=== PATIENT | female | born 1960 | race Caucasian/White ===

== ENCOUNTER 2020-09-18 11:20 | Emergency (ER) | payer BC, MEDICARE ==
[2020-09-18 11:25] VITALS: TEMP 97.8
[2020-09-18] MEDS ORDERED: SODIUM CHLORIDE 0.9% 1,000 ML IV STA (12:02)
[2020-09-18] MEDS ORDERED: HYDROmorphone 0.5 MG/0.5 ML SYRINGE IVP STA ×2 (12:03→13:52)
[2020-09-18] MEDS ORDERED: ONDANSETRON 4 MG/2 ML VIAL IVP STA (12:03)
[2020-09-18 12:33] LABS: Appearance,Urine Clear (Clear); Bacteria,Urine Rare /hpf; Bilirubin,Urine 1+ (Negative); Blood,Urine Negative (Negative); Color,Urine Dark Brown; Glucose,Urine (UA) Negative (Negative); Ketones,Urine Negative (Negative); Leukocyte Esterase,Urine Negative (Negative); Mucus,Urine Occasional /hpf; Nitrite,Urine Positive (Negative); Protein,Urine Negative (Negative); RBC,Urine 1 /hpf (0-5); Specific Gravity,Urine 1.021 (1.001-1.035); Squamous Epithelial Cell,Urine 1 /hpf (0-4); WBC,Urine 3 /hpf (0-5)
[2020-09-18 12:39] LABS: Basophils # (A) 0.1 k/uL (0-0.2); Basophils % (A) 1 %; Eosinophils # (A) 0.2 k/uL (0-0.7); Eosinophils % (A) 2 %; HCT 41.8 % (34.0-46.0); HGB 14.4 gm/dL (11.4-16.0); Lymphocytes # (A) 1.9 k/uL (1.0-4.8); Lymphocytes % (A) 28 %; MCH 29.4 pg (25.0-35.0); MCHC 34.4 g/dL (31.0-37.0); MCV 85.3 fL (80.0-100.0); Mean Platelet Volume 7.3; Monocytes # (A) 0.3 k/uL (0-1.0); Monocytes % (A) 5 %; Neutrophils # (A) 4.2 k/uL (1.3-7.7); Neutrophils % (A) 62 %; Platelet Count 246 k/uL (150-450); WBC 6.7 k/uL (3.8-10.6)
[2020-09-18 12:48] LABS: ALT 20 U/L (4-34); AST 26 U/L (14-36); African American GFR (CKD) >90 (>60 ml/min/1.73 sqM); Albumin 4.6 g/dL (3.5-5.0); Alkaline Phosphatase 112 U/L (38-126); Amylase 61 U/L (30-110); Anion Gap 12 mmol/L; Blood Urea Nitrogen 16 mg/dL (7-17); Calcium 9.7 mg/dL (8.4-10.2); Carbon Dioxide 23 mmol/L (22-30); Chloride 108 mmol/L (98-107); Glucose 90 mg/dL (74-99); Lipase 73 U/L (23-300); Non-African American GFR(CKD) >90 (>60 ml/min/1.73 sqM); Potassium 4.3 mmol/L (3.5-5.1); Sodium 143 mmol/L (137-145); Total Bilirubin 0.7 mg/dL (0.2-1.3); Total Protein 7.7 g/dL (6.3-8.2)
--- NOTE | 2020-09-18 12:55 | ED ---
General Adult HPI - General Chief complaint: Abdominal Pain Stated complaint: Abd pain, dizziness Time Seen by Provider: 09/18/20 11:42 Source: patient Mode of arrival: ambulatory Limitations: no limitations - History of Present Illness Initial comments: 60-year-old female with a past medical history of hypertension presents to the emergency room for a chief complaint of abdominal pain. Patient reports that she started to have abdominal pain in the past day or so. States that it progressively got worse. States she has feels it in her back. Patient admits to nausea but denies vomiting. Denies fevers.Patient has no other complaints at this time including shortness of breath, chest pain, headache, or visual changes. - Related Data Home Medications Medication Instructions Recorded Confirmed ALPRAZolam [Xanax] 0.25 mg PO BID PRN 11/06/13 09/18/20 Celecoxib [CeleBREX] 200 mg PO BID 09/18/20 09/18/20 Diazepam [Valium] 10 mg PO HS PRN 09/18/20 09/18/20 Gabapentin [Neurontin] 400 mg PO BID 09/18/20 09/18/20 Lidocaine 5% Oint [Xylocaine 5% 1 applic TOPICAL DAILY PRN 09/18/20 09/18/20 Oint] traMADol HCl [Ultram] 50 mg PO BID PRN 09/18/20 09/18/20 Previous Rx's Medication Instructions Recorded Sulfamethox-Tmp 800-160Mg [Bactrim 1 tab PO Q12HR #28 tab 09/18/20 DS 800-160 mg] Allergies Allergy/AdvReac Type Severity Reaction Status Date / Time Penicillins Allergy Anaphylaxis Verified 09/18/20 12:41 Review of Systems ROS Statement: Those systems with pertinent positive or pertinent negative responses have been documented in the HPI. ROS Other: All systems not noted in ROS Statement are negative. Past Medical History Past Medical History: Hypertension, Osteoarthritis (OA) Additional Past Medical History / Comment(s): back pain, History of Any Multi-Drug Resistant Organisms: None Reported Past Surgical History: Back Surgery, Breast Surgery, Section, Orthopedic Surgery, Tubal Ligation Additional Past Surgical History / Comment(s): BACK SX X2, LEFT KNEE ARTHROSCOPY, LEFT BREAST BX Past Anesthesia/Blood Transfusion Reactions: Postoperative Nausea & Vomiting (PONV) Past Psychological History: Anxiety Smoking Status: Never smoker Past Alcohol Use History: None Reported Past Drug Use History: Marijuana General Exam Limitations: no limitations General appearance: alert, in no apparent distress Head exam: Present: atraumatic, normocephalic, normal inspection Eye exam: Present: normal appearance, PERRL, EOMI. Absent: scleral icterus, conjunctival injection, periorbital swelling ENT exam: Present: normal exam, mucous membranes moist Neck exam: Present: normal inspection, full ROM. Absent: tenderness, meningismus, lymphadenopathy Respiratory exam: Present: normal lung sounds bilaterally. Absent: respiratory distress, wheezes, rales, rhonchi, stridor Cardiovascular Exam: Present: regular rate, normal rhythm, normal heart sounds. Absent: systolic murmur, diastolic murmur, rubs, gallop, clicks GI/Abdominal exam: Present: soft, normal bowel sounds. Absent: distended, tenderness (No significant abdominal tenderness noted.), guarding, rebound, rigid Course Vital Signs 09/18/20 11:22 Temperature 97.8 F Pulse Rate 85 Respiratory 20 Rate Blood Pressure 120/87 O2 Sat by Pulse 97 Oximetry EKG Findings - EKG Comments: EKG Findings:: Normal sinus rhythm, ventricular rate 68, MD interval 156, QTc 440 Medical Decision Making - Medical Decision Making Vitals are stable. CBC and CMP are unremarkable. Urinalysis however does have positive nitrites with 3 white blood cells and rare bacteria. Abdomen and pelvis shows no acute process. There is a simple cyst involving the right kidney which appears similar to 2015. Patient does have left CVA tenderness. She now states pain is in the left back and wraps around to the abdomen. Symptoms consistent with pyelonephritis. We will treat patient as such. She has an anaphylactic ALLERGY to penicillin, we will treat her with Bactrim. She will follow up with her doctor. She will return here for any worsening symptoms. - Lab Data Result diagrams: 09/18/20 12:30 09/18/20 12:30 Lab Results 09/18/20 09/18/20 09/18/20 Range/Units 11:47 12:30 12:30 WBC 6.7 (3.8-10.6) k/uL RBC 4.90 (3.80-5.40) m/uL Hgb 14.4 (11.4-16.0) gm/dL Hct 41.8 (34.0-46.0) % MCV 85.3 (80.0-100.0) fL MCH 29.4 (25.0-35.0) pg MCHC 34.4 (31.0-37.0) g/dL RDW 13.0 (11.5-15.5) % Plt Count 246 (150-450) k/uL MPV 7.3 Neutrophils % 62 % Lymphocytes % 28 % Monocytes % 5 % Eosinophils % 2 % Basophils % 1 % Neutrophils # 4.2 (1.3-7.7) k/uL Lymphocytes # 1.9 (1.0-4.8) k/uL Monocytes # 0.3 (0-1.0) k/uL Eosinophils # 0.2 (0-0.7) k/uL Basophils # 0.1 (0-0.2) k/uL Sodium 143 (137-145) mmol/L Potassium 4.3 (3.5-5.1) mmol/L Chloride 108 H (98-107) mmol/L Carbon Dioxide 23 (22-30) mmol/L Anion Gap 12 mmol/L BUN 16 (7-17) mg/dL Creatinine 0.69 (0.52-1.04) mg/dL Est GFR (CKD-EPI)AfAm >90 (>60 ml/min/1.73 sqM) Est GFR (CKD-EPI)NonAf >90 (>60 ml/min/1.73 sqM) Glucose 90 (74-99) mg/dL Calcium 9.7 (8.4-10.2) mg/dL Total Bilirubin 0.7 (0.2-1.3) mg/dL AST 26 (14-36) U/L ALT 20 (4-34) U/L Alkaline Phosphatase 112 (38-126) U/L Troponin I (0.000-0.034) ng/mL Total Protein 7.7 (6.3-8.2) g/dL Albumin 4.6 (3.5-5.0) g/dL Amylase 61 (30-110) U/L Lipase 73 (23-300) U/L Urine Color Dark Brown Urine Appearance Clear (Clear) Urine pH 6.0 (5.0-8.0) Ur Specific [place] 1.021 (1.001-1.035) Urine Protein Negative (Negative) Urine Glucose (UA) Negative (Negative) Urine Ketones Negative (Negative) Urine Blood Negative (Negative) Urine Nitrite Positive H (Negative) Urine Bilirubin 1+ H (Negative) Urine Urobilinogen 3.0 (<2.0) mg/dL Ur Leukocyte Esterase Negative (Negative) Urine RBC 1 (0-5) /hpf Urine WBC 3 (0-5) /hpf Ur Squamous Epith Cells 1 (0-4) /hpf Urine Bacteria Rare H (None) /hpf Urine Mucus Occasional H (None) /hpf 09/18/20 Range/Units 12:30 WBC (3.8-10.6) k/uL RBC (3.80-5.40) m/uL Hgb (11.4-16.0) gm/dL Hct (34.0-46.0) % MCV (80.0-100.0) fL MCH (25.0-35.0) pg MCHC (31.0-37.0) g/dL RDW (11.5-15.5) % Plt Count (150-450) k/uL MPV Neutrophils % % Lymphocytes % % Monocytes % % Eosinophils % % Basophils % % Neutrophils # (1.3-7.7) k/uL Lymphocytes # (1.0-4.8) k/uL Monocytes # (0-1.0) k/uL Eosinophils # (0-0.7) k/uL Basophils # (0-0.2) k/uL Sodium (137-145) mmol/L Potassium (3.5-5.1) mmol/L Chloride (98-107) mmol/L Carbon Dioxide (22-30) mmol/L Anion Gap mmol/L BUN (7-17) mg/dL Creatinine (0.52-1.04) mg/dL Est GFR (CKD-EPI)AfAm (>60 ml/min/1.73 sqM) Est GFR (CKD-EPI)NonAf (>60 ml/min/1.73 sqM) Glucose (74-99) mg/dL Calcium (8.4-10.2) mg/dL Total Bilirubin (0.2-1.3) mg/dL AST (14-36) U/L ALT (4-34) U/L Alkaline Phosphatase (38-126) U/L Troponin I <0.012 (0.000-0.034) ng/mL Total Protein (6.3-8.2) g/dL Albumin (3.5-5.0) g/dL Amylase (30-110) U/L Lipase (23-300) U/L Urine Color Urine Appearance (Clear) Urine pH (5.0-8.0) Ur Specific [place] (1.001-1.035) Urine Protein (Negative) Urine Glucose (UA) (Negative) Urine Ketones (Negative) Urine Blood (Negative) Urine Nitrite (Negative) Urine Bilirubin (Negative) Urine Urobilinogen (<2.0) mg/dL Ur Leukocyte Esterase (Negative) Urine RBC (0-5) /hpf Urine WBC (0-5) /hpf Ur Squamous Epith Cells (0-4) /hpf Urine Bacteria (None) /hpf Urine Mucus (None) /hpf Disposition Clinical Impression: Pyelonephritis Disposition: HOME SELF-CARE Condition: Good Instructions (If sedation given, give patient instructions): Kidney Infection (ED) Additional Instructions: Please take antibiotic as directed. Please follow-up with your doctor. Return to the emergency room for any worsening symptoms. Prescriptions: Sulfamethox-Tmp 800-160Mg [Bactrim DS 800-160 mg] 1 tab PO Q12HR #28 tab Is patient prescribed a controlled substance at d/c from ED?: No Referrals: Fanny Saenz MD [Primary Care Provider] - 1-2 days Time of Disposition: 13:45
--- NOTE | 2020-09-18 13:07 | CT ---
EXAMINATION TYPE: CT abdomen pelvis w con DATE OF EXAM: 09/18/2020 COMPARISON: None HISTORY: Pain CT DLP: 1838 mGycm Automated exposure control for dose reduction was used. CONTRAST: CT scan of the abdomen pelvis is performed , patient injected with 100 mL of Isovue 300. FINDINGS- LUNG BASES- No significant abnormality is appreciated. LIVER/GB- No gross abnormality is appreciated. PANCREAS- No gross abnormality is seen. SPLEEN- No gross abnormality is seen. ADRENALS- No gross abnormality is seen. KIDNEYS/BLADDER-hypodensity within the lower pole of the right. Kidney most likely related to simple cyst. BOWEL-bowel gas pattern nonspecific with no obstruction. Diverticulosis with no CT evidence of divert iculitis. Small duodenal diverticulum involving the third portion of the duodenum.. LYMPH NODES- No greater than 1cm abdominal or pelvic lymph nodes areappreciated. OSSEOUS STRUCTURES-hypertrophic and degenerative change of the spine. Chronic appearing deformity of the right iliac bone and transverse processes L4. OTHER- small fat-containing periumbilical hernia. IMPRESSION- 1. No acute process. Probable simple cyst involving the right kidney which appears similar to the maryanne or MRI lumbar spine of 05/21/2014.
[2020-09-18] MEDS ORDERED: SULFAMETH-TMP DS STARTER PACK 2 TAB BTL PO STA (13:46)
[2020-09-18] MEDS ORDERED: ACET/COD 300 MG/30 MG STARTER PACK 6 TAB BTL PO STA (13:52)
[2020-09-18] MEDS: SULFAMETH-TMP DS STARTER PACK 2 TAB BTL PO STA ×2 (14:27→14:30)
[2020-09-18 14:29] VITALS: BP 123/97; PULSE 75; RESP 18
== END 2020-09-18 14:38 | disposition home or self-care (01) ==
LOC: EC 11:20
DX: N12 Tubulo-interstitial nephritis, not specified as acute or chronic (principal); N28.1 Cyst of kidney, acquired; R42 Dizziness and giddiness; I10 Essential (primary) hypertension; M19.90 Unspecified osteoarthritis, unspecified site; F41.9 Anxiety disorder, unspecified; F12.90 Cannabis use, unspecified, uncomplicated; Z88.0 Allergy status to penicillin; Z79.899 Other long term (current) drug therapy; Z79.1 Long term (current) use of non-steroidal anti-inflammatories (NSAID)
CPT/HCPCS: 36415; 80053; 82150; 83690; 84484; 85025; 81001; 74177; 99284; 96374; 96375; 96376; J2405; J1170; Q9967; 93005

== ENCOUNTER 2021-12-03 12:19 | Emergency (ER) | payer BC, MEDICARE ==
[2021-12-03] MEDS ORDERED: ONDANSETRON 4 MG/2 ML VIAL IVP STA (12:51)
[2021-12-03] MEDS ORDERED: SODIUM CHLORIDE 0.9% 1,000 ML IV STA (12:51)
[2021-12-03 13:31] LABS: Basophils % (A) 1 %; Eosinophils # (A) 0.1 k/uL (0-0.7); Eosinophils % (A) 2 %; HCT 44.4 % (34.0-46.0); HGB 14.8 gm/dL (11.4-16.0); Lymphocytes # (A) 1.4 k/uL (1.0-4.8); Lymphocytes % (A) 37 %; MCH 28.5 pg (25.0-35.0); MCHC 33.2 g/dL (31.0-37.0); MCV 85.9 fL (80.0-100.0); Monocytes # (A) 0.2 k/uL (0-1.0); Monocytes % (A) 6 %; Neutrophils # (A) 2.1 k/uL (1.3-7.7); Neutrophils % (A) 54 %; Platelet Count 166 k/uL (150-450); RBC 5.17 m/uL (3.80-5.40); RDW 12.6 % (11.5-15.5); WBC 3.8 k/uL (3.8-10.6)
[2021-12-03 13:36] LABS: Partial Thromboplastin Time 24.9 sec (22.0-30.0); Prothrombin Time 10.5 sec (9.0-12.0)
[2021-12-03 13:39] VITALS: RESP 18
[2021-12-03] MEDS ORDERED: MORPHINE SULFATE 2 MG/ML SYRINGE IVP STA (13:40)
[2021-12-03 13:43] LABS: ALT 16 U/L (4-34); AST 32 U/L (14-36); African American GFR (CKD) >90 (>60 ml/min/1.73 sqM); Albumin 4.4 g/dL (3.5-5.0); Alkaline Phosphatase 80 U/L (38-126); Anion Gap 8 mmol/L; Blood Urea Nitrogen 14 mg/dL (7-17); Calcium 8.7 mg/dL (8.4-10.2); Carbon Dioxide 24 mmol/L (22-30); Chloride 107 mmol/L (98-107); Glucose 93 mg/dL (74-99); Magnesium 1.8 mg/dL (1.6-2.3); Non-African American GFR(CKD) 87 (>60 ml/min/1.73 sqM); Potassium 4.5 mmol/L (3.5-5.1); Sodium 139 mmol/L (137-145); Total Bilirubin 0.6 mg/dL (0.2-1.3); Total Protein 7.3 g/dL (6.3-8.2)
--- NOTE | 2021-12-03 14:06 | XR ---
EXAMINATION TYPE: XR chest 2V DATE OF EXAM: 12/03/2021 COMPARISON: 11/06/2013 INDICATION: Weakness TECHNIQUE: Frontal and lateral views of the chest are obtained. FINDINGS: The heart size is normal. The pulmonary vasculature is normal. The lungs are clear. IMPRESSION: 1. No acute pulmonary process.
--- NOTE | 2021-12-03 14:22 | ED ---
Nausea/Vomiting/Diarrhea HPI - General Chief complaint: Nausea/Vomiting/Diarrhea Stated complaint: COVID+ Time Seen by Provider: 12/03/21 12:30 Source: patient, family Mode of arrival: wheelchair Limitations: no limitations - History of Present Illness Initial comments: 61-year-old female presents the emergency department with myalgias, nausea, vomiting, cough for the past 2 weeks. States her tested positive for Covid 2 weeks ago. 2 days after that she began having symptoms. Originally she had improvement however starting 3 days ago she got worse again. She never tested herself for Covid. Over the past 3 days she's had diffuse myalgias, fatigue, nonproductive cough. She had a tele-visit with her primary care doctor who put her on Avelox thinking that she had pneumonia. States that the medication is making her nauseated and vomits every time she takes it. Due to the persistence of her symptoms she came into the emergency department. She denies headaches or visual changes. No chest pain. No abdominal pain. Patient has had a decreased appetite. No other alleviating, draw operator modifying factors - Related Data Home Medications Medication Instructions Recorded Confirmed ALPRAZolam [Xanax] 0.25 mg PO BID PRN 11/06/13 09/18/20 Celecoxib [CeleBREX] 200 mg PO BID 09/18/20 09/18/20 Gabapentin [Neurontin] 400 mg PO BID 09/18/20 09/18/20 Lidocaine 5% Oint [Xylocaine 5% 1 applic TOPICAL DAILY PRN 09/18/20 09/18/20 Oint] diazePAM [Valium] 10 mg PO HS PRN 09/18/20 09/18/20 traMADol HCl [Ultram] 50 mg PO BID PRN 09/18/20 09/18/20 Previous Rx's Medication Instructions Recorded Sulfamethox-Tmp 800-160Mg [Bactrim 1 tab PO Q12HR #28 tab 09/18/20 DS 800-160 mg] Albuterol Inhaler [Ventolin Hfa 2 puff INHALATION RT-QID #8 gm 12/03/21 Inhaler] Nirmatrelvir/Ritonavir [Paxlovid 1 each PO BID #1 pack 12/03/21 2X150 mg-100 mg (Eua)] Ondansetron Odt [Zofran Odt] 4 mg PO Q8HR PRN #15 tab 12/03/21 predniSONE [Deltasone] 20 mg PO BID #10 tab 12/03/21 Allergies Allergy/AdvReac Type Severity Reaction Status Date / Time Penicillins Allergy Anaphylaxis Verified 12/03/21 12:28 Review of Systems ROS Statement: Those systems with pertinent positive or pertinent negative responses have been documented in the HPI. ROS Other: All systems not noted in ROS Statement are negative. Past Medical History Past Medical History: Hypertension, Osteoarthritis (OA) Additional Past Medical History / Comment(s): back pain, lupus History of Any Multi-Drug Resistant Organisms: None Reported Past Surgical History: Back Surgery, Breast Surgery, Section, Orthopedic Surgery, Tubal Ligation Additional Past Surgical History / Comment(s): BACK SX X2, LEFT KNEE ARTHROSCOPY, LEFT BREAST BX Past Anesthesia/Blood Transfusion Reactions: Postoperative Nausea & Vomiting ( PONV) Past Psychological History: Anxiety Smoking Status: Never smoker Past Alcohol Use History: None Reported Past Drug Use History: Marijuana General Exam Limitations: no limitations General appearance: alert, in no apparent distress Head exam: Present: atraumatic, normocephalic, normal inspection Eye exam: Present: normal appearance, PERRL, EOMI. Absent: scleral icterus, conjunctival injection, periorbital swelling ENT exam: Present: normal exam, mucous membranes moist Neck exam: Present: normal inspection. Absent: tenderness, meningismus, lymphadenopathy Respiratory exam: Present: normal lung sounds bilaterally. Absent: respiratory distress, wheezes, rales, rhonchi, stridor Cardiovascular Exam: Present: normal rhythm, tachycardia, normal heart sounds. Absent: systolic murmur, diastolic murmur, rubs, gallop, clicks GI/Abdominal exam: Present: soft, normal bowel sounds. Absent: distended, tenderness, guarding, rebound, rigid Extremities exam: Present: normal inspection, full ROM, normal capillary refill. Absent: tenderness, pedal edema, joint swelling, calf tenderness Back exam: Present: normal inspection Neurological exam: Present: alert, oriented X3, CN II-XII intact Psychiatric exam: Present: normal affect, normal mood Skin exam: Present: warm, dry, intact, normal color. Absent: rash Course Vital Signs 12/03/21 12/03/21 12/03/21 12:20 13:36 15:14 Temperature 97.9 F 99.1 F Pulse Rate 102 H 80 70 Respiratory 20 18 18 Rate Blood Pressure 99/74 105/81 103/74 O2 Sat by Pulse 99 96 96 Oximetry Medical Decision Making - Medical Decision Making Upon arrival patient was placed into room 10. Thorough history and physical exam is performed. IV access was established. Patient given nausea medications and a liter of normal saline. Laboratory studies are conducted and reviewed. Patient is testing positive for cold at this time. Chest x-ray demonstrates no acute process. I did recommend treatment with steroids and an inhaler. She may discontinue the antibiotic if she is not tolerating it. I will also prescribe the patient packs of it. Instructed if she does not feel improved with the antibiotics that she may start taking the Paxlovid tomorrow. Patient also given a prescription for nausea medications. Should you have any new or worsening symptoms, return to the emergency department. Patient agreed and was discharged home in stable condition - Lab Data Result diagrams: 12/03/21 13:20 12/03/21 13:20 Lab Results 12/03/21 12/03/21 12/03/21 Range/Units 12:44 13:02 13:20 WBC 3.8 (3.8-10.6) k/uL RBC 5.17 (3.80-5.40) m/uL Hgb 14.8 (11.4-16.0) gm/dL Hct 44.4 (34.0-46.0) % MCV 85.9 (80.0-100.0) fL MCH 28.5 (25.0-35.0) pg MCHC 33.2 (31.0-37.0) g/dL RDW 12.6 (11.5-15.5) % Plt Count 166 (150-450) k/uL MPV 8.0 Neutrophils % 54 % Lymphocytes % 37 % Monocytes % 6 % Eosinophils % 2 % Basophils % 1 % Neutrophils # 2.1 (1.3-7.7) k/uL Lymphocytes # 1.4 (1.0-4.8) k/uL Monocytes # 0.2 (0-1.0) k/uL Eosinophils # 0.1 (0-0.7) k/uL Basophils # 0.0 (0-0.2) k/uL PT (9.0-12.0) sec INR (<1.2) APTT (22.0-30.0) sec Sodium (137-145) mmol/L Potassium (3.5-5.1) mmol/L Chloride (98-107) mmol/L Carbon Dioxide (22-30) mmol/L Anion Gap mmol/L BUN (7-17) mg/dL Creatinine (0.52-1.04) mg/dL Est GFR (CKD-EPI)AfAm (>60 ml/min/1.73 sqM) Est GFR (CKD-EPI)NonAf (>60 ml/min/1.73 sqM) Glucose (74-99) mg/dL Plasma Lactic Acid Sylvain (0.7-2.0) mmol/L Calcium (8.4-10.2) mg/dL Magnesium (1.6-2.3) mg/dL Total Bilirubin (0.2-1.3) mg/dL AST (14-36) U/L ALT (4-34) U/L Alkaline Phosphatase (38-126) U/L Troponin I (0.000-0.034) ng/mL Total Protein (6.3-8.2) g/dL Albumin (3.5-5.0) g/dL Coronavirus (PCR) Detected A (Not Detectd) Influenza Type A RNA Not Detected (Not Detectd) Influenza Type B (PCR) Not Detected (Not Detectd) 12/03/21 12/03/21 12/03/21 Range/Units 13:20 13:20 13:20 WBC (3.8-10.6) k/uL RBC (3.80-5.40) m/uL Hgb (11.4-16.0) gm/dL Hct (34.0-46.0) % MCV (80.0-100.0) fL MCH (25.0-35.0) pg MCHC (31.0-37.0) g/dL RDW (11.5-15.5) % Plt Count (150-450) k/uL MPV Neutrophils % % Lymphocytes % % Monocytes % % Eosinophils % % Basophils % % Neutrophils # (1.3-7.7) k/uL Lymphocytes # (1.0-4.8) k/uL Monocytes # (0-1.0) k/uL Eosinophils # (0-0.7) k/uL Basophils # (0-0.2) k/uL PT 10.5 (9.0-12.0) sec INR 1.0 (<1.2) APTT 24.9 (22.0-30.0) sec Sodium 139 (137-145) mmol/L Potassium 4.5 (3.5-5.1) mmol/L Chloride 107 (98-107) mmol/L Carbon Dioxide 24 (22-30) mmol/L Anion Gap 8 mmol/L BUN 14 (7-17) mg/dL Creatinine 0.76 (0.52-1.04) mg/dL Est GFR (CKD-EPI)AfAm >90 (>60 ml/min/1.73 sqM) Est GFR (CKD-EPI)NonAf 87 (>60 ml/min/1.73 sqM) Glucose 93 (74-99) mg/dL Plasma Lactic Acid Syl[place]ain 1.1 (0.7-2.0) mmol/L Calcium 8.7 (8.4-10.2) mg/dL Magnesium 1.8 (1.6-2.3) mg/dL Total Bilirubin 0.6 (0.2-1.3) mg/dL AST 32 (14-36) U/L ALT 16 (4-34) U/L Alkaline Phosphatase 80 (38-126) U/L Troponin I (0.000-0.034) ng/mL Total Protein 7.3 (6.3-8.2) g/dL Albumin 4.4 (3.5-5.0) g/dL Coronavirus (PCR) (Not Detectd) Influenza Type A RNA (Not Detectd) Influenza Type B (PCR) (Not Detectd) 12/03/21 Range/Units 13:20 WBC (3.8-10.6) k/uL RBC (3.80-5.40) m/uL Hgb (11.4-16.0) gm/dL Hct (34.0-46.0) % MCV (80.0-100.0) fL MCH (25.0-35.0) pg MCHC (31.0-37.0) g/dL RDW (11.5-15.5) % Plt Count (150-450) k/uL MPV Neutrophils % % Lymphocytes % % Monocytes % % Eosinophils % % Basophils % % Neutrophils # (1.3-7.7) k/uL Lymphocytes # (1.0-4.8) k/uL Monocytes # (0-1.0) k/uL Eosinophils # (0-0.7) k/uL Basophils # (0-0.2) k/uL PT (9.0-12.0) sec INR (<1.2) APTT (22.0-30.0) sec Sodium (137-145) mmol/L Potassium (3.5-5.1) mmol/L Chloride (98-107) mmol/L Carbon Dioxide (22-30) mmol/L Anion Gap mmol/L BUN (7-17) mg/dL Creatinine (0.52-1.04) mg/dL Est GFR (CKD-EPI)AfAm (>60 ml/min/1.73 sqM) Est GFR (CKD-EPI)NonAf (>60 ml/min/1.73 sqM) Glucose (74-99) mg/dL Plasma Lactic Acid Sylv[place] (0.7-2.0) mmol/L Calcium (8.4-10.2) mg/dL Magnesium (1.6-2.3) mg/dL Total Bilirubin (0.2-1.3) mg/dL AST (14-36) U/L ALT (4-34) U/L Alkaline Phosphatase (38-126) U/L Troponin I <0.012 (0.000-0.034) ng/mL Total Protein (6.3-8.2) g/dL Albumin (3.5-5.0) g/dL Coronavirus (PCR) (Not Detectd) Influenza Type A RNA (Not Detectd) Influenza Type B (PCR) (Not Detectd) - EKG Data EKG Comments: EKG demonstrates sinus rhythm with a rate of 79. OR interval 154. Contrast 94. QTC 427. No acute ST segment elevations or depressions Disposition Clinical Impression: Nausea and vomiting, Myalgia, COVID-19 Disposition: HOME SELF-CARE Condition: Stable Instructions (If sedation given, give patient instructions): COVID-19 (C oronavirus Disease 2019) (ED) Additional Instructions: Start taking the steroids tomorrow. Use the albuterol inhaler every 4 hours. Take the antinausea medications every 8 hours. If you do not feel better tomorrow, take the Paxlovid. You can stop the antibiotic provided by her primary care Return for any new or worsening symptoms Prescriptions: predniSONE [Deltasone] 20 mg PO BID #10 tab Nirmatrelvir/Ritonavir [Paxlovid 2X150 mg-100 mg (Eua)] 1 each PO BID #1 pack Albuterol Inhaler [Ventolin Hfa Inhaler] 2 puff INHALATION RT-QID #8 gm Ondansetron Odt [Zofran Odt] 4 mg PO Q8HR PRN #15 tab PRN Reason: Nausea Is patient prescribed a controlled substance at d/c from ED?: No Referrals: Fanny Saenz MD [Primary Care Provider] - 1-2 days Time of Disposition: 14:59
[2021-12-03] MEDS ORDERED: methylPREDNISolone SOD SUCCI 125 MG/2 ML VIAL IV STA (14:52)
[2021-12-03 15:20] VITALS: BP 103/74; PULSE 70; TEMP 99.1
== END 2021-12-03 15:20 | disposition home or self-care (01) ==
LOC: EC 12:19
DX: U07.1 COVID-19 (principal); I10 Essential (primary) hypertension; M19.90 Unspecified osteoarthritis, unspecified site; Z88.0 Allergy status to penicillin; Z79.899 Other long term (current) drug therapy
CPT/HCPCS: 36415; 93005; 80053; 83605; 83735; 84484; 85025; 85610; 85730; 87502; 87635; 71046; 99284; 96374; 96375; 96361; J2930; J2405; J2270

== ENCOUNTER 2023-04-24 18:01 | Emergency (ER) | payer BC, MEDICARE ==
[2023-04-24] MEDS ORDERED: IPRATROPIUM-ALBUTEROL 3 ML NEB INHALATION STA (18:43)
[2023-04-24 18:49] VITALS: RESP 20; TEMP 97.6
--- NOTE | 2023-04-24 19:09 | XR ---
EXAMINATION TYPE: XR chest 1V DATE OF EXAM: 04/24/2023 6:57 PM CLINICAL INDICATION:Female, 62 years old with history of cough; COMPARISON: None. TECHNIQUE: XR chest 1V Frontal view of the chest. FINDINGS: Lungs/Pleura: Subsegmental atelectasis is present in the lung bases, right greater than left. No evid ence of pleural effusion or pneumothorax. Pulmonary vascularity: Unremarkable. Heart/mediastinum: Cardiomediastinal silhouette is unremarkable. Musculoskeletal: No acute osseous pathology. IMPRESSION: Subsegmental atelectasis, otherwise no acute cardiopulmonary process.
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
[2023-04-24 20:47] LABS: VBG PH 7.36 (7.31-7.41)
[2023-04-24 21:44] VITALS: BP 112/97; PULSE 80
== END 2023-04-24 21:30 | disposition home or self-care (01) ==
LOC: EC 18:01
DX: J98.01 Acute bronchospasm (principal); I10 Essential (primary) hypertension; F12.90 Cannabis use, unspecified, uncomplicated; F41.9 Anxiety disorder, unspecified; J45.909 Unspecified asthma, uncomplicated; Z79.899 Other long term (current) drug therapy; Z88.0 Allergy status to penicillin
CPT/HCPCS: 71045; 82375; 82803; 94640; 99285

== ENCOUNTER → 2023-05-24 | Outpatient (CLI) | payer BC, MEDICARE ==
--- NOTE | 2023-05-24 16:19 | XR ---
EXAMINATION TYPE: XR chest 2V DATE OF EXAM: 05/24/2023 COMPARISON: 04/24/2023 TECHNIQUE: PA and lateral views submitted. HISTORY: Cough FINDINGS: The lungs are clear and there is no pneumothorax, pleural effusion, or focal pneumonia. Heart size normal and no overt failure. Osseous structures demonstrate hypertrophic and degenerative changes of the spine. Mild prominence of the ascending aorta. IMPRESSION: 1. No acute process. 2. Mild prominence of the ascending aorta and right hilum. Aneurysm in the differential diagnosis.
== END | disposition home or self-care (01) ==
LOC: RADXRMAIN 15:08
PROVIDERS: ATTEND Nurse Practitioner Family
DX: R05.2 Subacute cough (principal)
CPT/HCPCS: 71046

== ENCOUNTER → 2023-05-26 | Outpatient (CLI) | payer BC, MEDICARE ==
--- NOTE | 2023-05-29 12:15 | MR ---
EXAMINATION TYPE: MR guy wo con DATE OF EXAM: 05/26/2023 3:11 PM COMPARISON: NONE HISTORY: Neck pain with numbness and tingling in arms and hands. Low back pain that radiates down bot h legs. Multiplanar MultiSpin echo imaging of the cervical spine was performed. Comparison: none C2-C3: No evidence for degenerative disc disease. No disc bulge/herniation or protrusion. No Canal stenosis. Foramina are patent bilaterally. C3-C4: No evidence for degenerative disc disease. No disc bulge/herniation or protrusion. No Canal stenosis. Foramina are patent bilaterally. C4-C5: No evidence for degenerative disc disease. No disc bulge/herniation or protrusion. No Canal stenosis. Foramina are patent bilaterally. C5-C6: Severe Disc desiccation with posterior disc bulge. Ventral spondylosis. Effacement of the vent ral thecal sac with borderline central stenosis. Mild left greater than right foraminal encroachment. No disc herniation. C6-C7: Moderate disc desiccation. Mild posterior disc bulge. No evidence of herniation or protrusion. No central stenosis or foraminal encroachment. No terrence disc herniation. C7-T1: No evidence for degenerative disc disease. No disc bulge/herniation or protrusion. No Canal stenosis. Foramina are patent bilaterally. Cervical segments are intact. There is normal alignment. Cervical spinal cord is of normal signal. Craniovertebral junction relationships are within normal limits. IMPRESSION: 1. Disc desiccation as discussed above at C5-6 and C6-7. 2. Borderline central stenosis at C5-6. EXAMINATION TYPE: MR guy wo con DATE OF EXAM: 05/26/2023 3:11 PM COMPARISON: NONE HISTORY: Neck pain with numbness and tingling in arms and hands. Low back pain that radiates down bot h legs. Multiplanar, MultiSpin echo imaging of the lumbar spine was performed. L1-L2: Normal disc appearance without desiccation. No herniation, protrusion or disc bulging. No ca nal stenosis is present. Foramina are patent bilaterally. L2-L3: Normal disc appearance without desiccation. No herniation, protrusion or disc bulging. No ca nal stenosis is present. Foramina are patent bilaterally. L3-L4: Mild disc desiccation posterior disc bulge minimal in degree. Mild effacement of ventral theca l sac without herniation or central stenosis. No foraminal encroachment visualized. L4-L5: Normal disc appearance without desiccation. No herniation, protrusion or disc bulging. No ca nal stenosis is present. Foramina are patent bilaterally. L5-S1: Normal disc appearance without desiccation. No herniation, protrusion or disc bulging. No ca nal stenosis is present. Foramina are patent bilaterally. Lumbar segments are intact. No paraspinal masses are identified. Conus medullaris has a normal appe arance. Scattered ventral spondylosis. IMPRESSION: 1. Degenerative Disc disease and disc bulging at L3-4.
== END | disposition home or self-care (01) ==
LOC: RADMRIMAIN 13:19
PROVIDERS: ATTEND Neurological Surgery
DX: M51.36 Other intervertebral disc degeneration, lumbar region (principal); M48.07 Spinal stenosis, lumbosacral region
CPT/HCPCS: 72141; 72148

== ENCOUNTER → 2023-05-26 | Outpatient (CLI) | payer BC, MEDICARE ==
--- NOTE | 2023-05-26 15:55 | XR ---
EXAMINATION TYPE: XR lumbar spine 2 or 3V DATE OF EXAM: 05/26/2023 CLINICAL HISTORY: pain TECHNIQUE: Three views of the lumbar spine are submitted. COMPARISON: None. FINDINGS: There are 5 lumbar type vertebral bodies identified. The lumbar spine shows satisfactory alignment w ithout evidence of acute fracture or dislocation. Vertebral body heights are within normal limits. Mild degenerative disc space narrowing at multiple levels. The overlying soft tissue appears unremar kable. IMPRESSION: No acute fracture or dislocation is seen in the lumbar spine. ICD 10 NO FRACTURE, INITIAL EVALUATION
--- NOTE | 2023-05-26 16:17 | XR ---
EXAMINATION TYPE: XR cervical spine limited DATE OF EXAM: 05/26/2023 CLINICAL HISTORY: pain TECHNIQUE: 3 views of the cervical spine are submitted. COMPARISON: None. FINDINGS: There is satisfactory in alignment without evidence of acute fracture or dislocation. The pre-vertebral soft tissue appears within normal limits. Moderate degenerative disc space narrowing a t C5-6 with mild to moderate narrowing at C3-4 and C6-7. The C1-C2 articulation is unremarkable on th e open mouth view. IMPRESSION: No acute fracture or dislocation is seen in the cervical spine.
== END | disposition home or self-care (01) ==
LOC: RADXRMAIN 13:55
PROVIDERS: ATTEND Neurological Surgery
DX: M48.02 Spinal stenosis, cervical region (principal); M54.50 Low back pain, unspecified
CPT/HCPCS: 72040; 72100

== ENCOUNTER → 2023-05-31 | Outpatient (CLI) | payer BC, MEDICARE ==
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
== END | disposition home or self-care (01) ==
LOC: RADCTMAIN 09:21
PROVIDERS: ATTEND Family Medicine
DX: I71.21 Aneurysm of the ascending aorta, without rupture (principal); X00.0XXA Exposure to flames in uncontrolled fire in building or structure, initial encounter
CPT/HCPCS: 71275; Q9967

== ENCOUNTER 2023-08-03 13:45 | Emergency (ER) | payer BC, MEDICARE ==
[2023-08-03 14:06] VITALS: TEMP 98.4
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
[2023-08-03 15:12] LABS: Basophils % (A) 0 %; Eosinophils # (A) 0.2 k/uL (0-0.7); Eosinophils % (A) 2 %; HCT 42.6 % (34.0-46.0); HGB 14.6 gm/dL (11.4-16.0); Lymphocytes # (A) 2.3 k/uL (1.0-4.8); Lymphocytes % (A) 22 %; MCH 30.3 pg (25.0-35.0); MCHC 34.2 g/dL (31.0-37.0); MCV 88.6 fL (80.0-100.0); Mean Platelet Volume 8.2; Monocytes # (A) 0.5 k/uL (0-1.0); Monocytes % (A) 5 %; Neutrophils # (A) 7.1 k/uL (1.3-7.7); Neutrophils % (A) 69 %; Platelet Count 236 k/uL (150-450); RBC 4.81 m/uL (3.80-5.40); RDW 13.2 % (11.5-15.5); WBC 10.2 k/uL (3.8-10.6)
[2023-08-03 15:23] LABS: ALT 21 U/L (4-34); AST 25 U/L (14-36); African American GFR (CKD) >90 (>60 ml/min/1.73 sqM); Albumin 4.4 g/dL (3.5-5.0); Alkaline Phosphatase 116 U/L (38-126); Anion Gap 12 mmol/L; Blood Urea Nitrogen 16 mg/dL (7-17); Calcium 9.5 mg/dL (8.4-10.2); Carbon Dioxide 21 mmol/L (22-30); Chloride 108 mmol/L (98-107); Glucose 91 mg/dL (74-99); Lipase 70 U/L (23-300); Non-African American GFR(CKD) >90 (>60 ml/min/1.73 sqM); Potassium 3.4 mmol/L (3.5-5.1); Sodium 141 mmol/L (137-145); Total Bilirubin 0.8 mg/dL (0.2-1.3); Total Protein 7.3 g/dL (6.3-8.2)
[2023-08-03 15:24] LABS: INR 0.9 (<1.2)
[2023-08-03 15:30] LABS: NT-Pro-B-Type Natriuretic Pept 22 pg/mL
--- NOTE | 2023-08-03 15:35 | XR ---
EXAMINATION TYPE: XR chest 1V portable DATE OF EXAM: 08/03/2023 COMPARISON: 05/24/2023 HISTORY: Chest pain TECHNIQUE: Single frontal view of the chest is obtained. FINDINGS: There is no focal air space opacity, pleural effusion, or pneumothorax seen. The cardiac silhouette size is within normal limits. The osseous structures are intact. Elevated right hemidiap hragm. Diffuse osteopenia. IMPRESSION: No acute process.
[2023-08-03] MEDS: KETOROLAC 15 MG/ML 1 ML VIAL IVP STA (16:39)
[2023-08-03] MEDS: PROCHLORPERAZINE INJ 10 MG/2 ML VIAL IVP STA (16:40)
[2023-08-03] MEDS: SODIUM CHLORIDE 0.9% 1,000 ML IV STA (16:40)
--- NOTE | 2023-08-03 17:17 | CT ---
EXAMINATION TYPE: CT brain wo con CT DLP: 1125.4 mGycm, Automated exposure control for dose reduction was used. DATE OF EXAM: 08/03/2023 5:05 PM COMPARISON: None. CLINICAL INDICATION:Female, 63 years old with history of gray, headache TECHNIQUE: Brain: Axial CT images of the brain were obtained with coronal and sagittal reformats created and rev iewed. Contrast used: None. Oral contrast used: None. FINDINGS: Brain: Extra-axial spaces: No abnormal extra-axial fluid collections. Ventricular system: Within normal limits Cerebral parenchyma: No acute intraparenchymal hemorrhage or mass effect. The martinez-white junction is well differentiated. Cerebellum: Unremarkable. Mass effect: No evidence of midline shift. Intracranial vasculature: unremarkable Soft tissues: Normal. Calvarium/osseous structures: No depressed skull fracture. Paranasal sinuses and mastoid air cells: Mild scattered paranasal sinus disease. Visualized orbits: Orbital contents are intact. IMPRESSION: No acute intracranial process.
--- NOTE | 2023-08-03 17:21 | CT ---
EXAMINATION TYPE: CT angio chest CT DLP: 535.9 mGycm, Automated exposure control for dose reduction was used. DATE OF EXAM: 08/03/2023 5:06 PM COMPARISON: CLINICAL INDICATION:Female, 63 years old with history of hypoxia; hypoxia TECHNIQUE/CONTRAST: CTA scan of the thorax is performed with IV Contrast, patient injected with 75ml mL of Isovue 370, SD P images are created and reviewed these are created on a separate workstation.. FINDINGS: Pulmonary Artery: There is no evidence for a filling defect within the pulmonary vasculature to sugge st acute pulmonary embolism. The pulmonary artery is of normal size. Lungs/Pleura: No evidence of focal consolidation, pleural effusion or pneumothorax. Airway: Large airways are patent. Heart: Heart is within normal limits for size. Vasculature: No evidence of aortic aneurysm. Mediastinum: No gross evidence of adenopathy. Musculoskeletal: No acute osseous abnormalities Soft Tissues: Unremarkable. Lower neck: No significant findings. Upper Abdomen: No significant findings. IMPRESSION: No evidence of pulmonary embolism.
[2023-08-03] MEDS: POTASSIUM BICARBONATE/CIT AC 20 MEQ TABLET.EFF PO ONE (17:37)
[2023-08-03] MEDS: IPRATROPIUM-ALBUTEROL 3 ML NEB INHALATION STA (17:53)
[2023-08-03 18:08] VITALS: RESP 16
[2023-08-03 18:41] VITALS: BP 150/98; PULSE 68
== END 2023-08-03 18:21 | disposition home or self-care (01) ==
LOC: EC 13:45
DX: J20.9 Acute bronchitis, unspecified (principal); F12.90 Cannabis use, unspecified, uncomplicated; Z88.0 Allergy status to penicillin
CPT/HCPCS: 36415; 94640; 93005; 83880; 80053; 83690; 83735; 84484; 85025; 85610; 85730; 71045; 70450; 71275; 99285; 96374; 96375; 96361; J0780; J1885; Q9967